=== PATIENT | female | born 1990 | race Caucasian/White ===

== ENCOUNTER 2018-08-15 11:43 | Day surgery (SDC) | payer BC ==
[~2018-08-15 11:43] MED LIST: PROPOFOL 200 MG INJ
[2018-08-15] MEDS ORDERED: FENTAnyl 50 MCG/ML VIAL (13:53)
== END 2018-08-15 15:40 | disposition home or self-care (01) ==
LOC: GIL 11:43
DX: R12 Heartburn (principal); K44.9 Diaphragmatic hernia without obstruction or gangrene; K21.9 Gastro-esophageal reflux disease without esophagitis; K29.60 Other gastritis without bleeding; E11.9 Type 2 diabetes mellitus without complications; E66.9 Obesity, unspecified; Z68.43 Body mass index [BMI] 50.0-59.9, adult
CPT/HCPCS: 43239; 82962; 88305; 88312